=== PATIENT | male | born 1975 | race Caucasian/White ===

== ENCOUNTER 2018-07-11 06:46 | Day surgery (SDC) | payer OTHER ==
--- NOTE | 2018-07-09 09:06 | RAD REPORT ---
EXAM DESCRIPTION: RAD - Chest Pa And Lat (2 Views) - 07/09/2018 8:43 am CLINICAL HISTORY: preop Chest pain. COMPARISON: Chest Pa And Lat (2 Views) dated 02/19/2017 FINDINGS: The lungs are clear. The heart is normal in size. No displaced fractures. IMPRESSION: No acute or concerning finding suspected.
--- NOTE | 2018-07-09 10:08 | EKG ---
Test Date: 2018-07-09 Test Time: 08:30:02 Civil Structural Designer: MARISOL MEASUREMENT RESULTS: Intervals: Rate: 46 UT: 150 QRSD: 96 QT: 458 QTc: 400 [place]: P: 37 UT: 150 QRS: 2 T: -5 INTERPRETIVE STATEMENTS: Marked sinus bradycardia Abnormal ECG No previous ECG available for comparison Electronically Signed On 07-09-18 10:07:58 CEREAL SUPERVISOR by Cedric Choi
[2018-07-09 10:09] LABS: Absolute Lymphocytes (CBC) 2.9 K/uL (0.7-4.9); Absolute Monocytes 0.7 K/uL (0.1-1.3); Absolute Neutrophil 5.5 K/uL (1.8-8.0); Basophils % 0.6 % (0-1.3); Eosinophils % 1.6 % (0-4.4); Hematocrit 44.1 % (39.6-49.0); Lymphocytes % 30.9 % (15.3-44.8); MCH 30.4 pg (27.0-35.0); MCV 88.7 fL (80-100); Monocytes % 7.8 % (3.3-12.3); RBC Red Blood Cell Count 4.97 M/uL (4.33-5.43)
[2018-07-09 10:14] LABS: Albumin 3.9 g/dL (3.4-5.0); Bilirubin Direct 0.1 mg/dL (0-0.2); Bilirubin Total 0.5 mg/dL (0.2-1.0); Protein, Total 7.8 g/dL (6.4-8.2)
[2018-07-11] MEDS ORDERED: NA CHLORIDE 0.9% 1,000 ML ONE (07:55)
[2018-07-11] MEDS ORDERED: CEFOXITIN/SWI 1gm 1 GM/10 ML SYR ONE (07:56)
[2018-07-11] MEDS ORDERED: PROPOFOL 200 MG/20 ML VIAL IV ONE (08:36)
[2018-07-11] MEDS ORDERED: FENTANYL CITR 100 MCG/2 ML ONE (08:36)
[2018-07-11] MEDS ORDERED: MIDAZOLAM HCL 2 MG/2 ML INJ ONE (08:37)
[2018-07-11] MEDS ORDERED: LIDOCAINE 2% MPF 5 ML VIAL ONE (08:37)
[2018-07-11] MEDS ORDERED: ROCURONIUM 50 MG/5 ML VIAL IV ONE (08:38)
[2018-07-11] MEDS ORDERED: ONDANSETRON 4 MG/2 ML VIAL ONE (08:38)
[2018-07-11] MEDS ORDERED: EPHEDRINE SULF 50 MG/10 ML SYR ONE (09:32)
[2018-07-11] MEDS ORDERED: NEOSTIGMINE 1 MG/ML -5 ML SYRINGE ONE (10:08)
[2018-07-11] MEDS ORDERED: GLYCOPYRROLATE 0.2 MG/ML SYR ONE ×3 (10:08)
[2018-07-11] MEDS ORDERED: HYDROCODONE/APAP 7.5/325 MG TAB ONE (11:35)
--- NOTE | 2018-07-11 21:59 | OP ---
Date of Procedure: 07/11/2018 Surgeon: Uday Olivares MD Customer Complaint Clerk: MANGO Romero. Preoperative Diagnosis: Symptomatic cholelithiasis. Postoperative Diagnosis: Symptomatic cholelithiasis. Procedure: Laparoscopic cholecystectomy. Estimated Blood Loss: Minimal. Specimen: Gallbladder. Findings: As above. Anesthesia: General. Complications: None. Disposition: The patient tolerated the procedure in stable condition and taken to recovery in good g eneral condition. Description Of Procedure: The patient was brought to the OR and placed in the supine position. Gene ral anesthesia was begun. The patient was prepped and draped in usual sterile fashion. Marcaine 0.5 % was infiltrated locally. A 15-blade was used to make a 1 cm supraumbilical midline incision. Subc utaneous tissue was divided. The fascia was identified and divided. A #1 Vicryl stay suture was nusrat darwin. Peritoneal cavity was entered with sharp and blunt dissection. A 12-mm trocar was placed into the peritoneal cavity under direct vision. Pneumoperitoneum was established. Then, three 5-mm troca rs were placed, 1 in the epigastrium just to the right of midline and 2 in the right subcostal region . Laparoscopy revealed chronic inflammation of the gallbladder. Fundus was retracted superiorly. I nfundibulum was identified and retracted inferolaterally. Cystic duct and cystic artery were clearly identified with blunt dissection. Clips were placed. Both structures were divided. Cautery was us ed to remove the gallbladder from the liver bed. Bleeding on the liver bed was controlled with caute ry. The gallbladder was retrieved through the umbilicus via an EndoCatch bag. Right upper quadrant was examined. No evidence of bleeding or bile leakage was appreciated. Subsequently, all trocars we re removed under direct vision. Stay sutures were tied to each other to reapproximate the fascial de fect. Subcutaneous wounds were irrigated. Bleeding was controlled cautery. A 3-0 chromic used to r eapproximate the subcutaneous tissue and close the skin. Sterile dressing was applied. The patient was awakened and taken to recovery in good general condition. Discharge Note: The patient will go to day surgery and home when stable. Disposition: Home. Condition: Stable. Discharge Instructions: Resume home meds and diet. Activity as tolerated. No heavy lifting. Remov e outer dressing in 2 days. Shower. Keep wound clean and dry. Keep Steri-Strips on at all times. Follow up in my office in 1 week. Call for appointment. Tylenol No. 3, 1 tablet p.o. q.4 p.r.n. cecil VILLANUEVA/DERRICK Voice ID: [id number] Report ID: [id number]
== END 2018-07-11 12:30 | disposition home or self-care (01) ==
LOC: OR 06:46
PROVIDERS: ATTEND Surgery
PROC: 0FT44ZZ Resection of Gallbladder, Percutaneous Endoscopic Approach (ICD-10-PCS; principal; 2018-07-11 08:00)
DX: K80.10 Calculus of gallbladder with chronic cholecystitis without obstruction (principal); I10 Essential (primary) hypertension; E11.9 Type 2 diabetes mellitus without complications; K21.9 Gastro-esophageal reflux disease without esophagitis
CPT/HCPCS: 36415; 71046; 80048; 80076; 82150; 82962; 83036; 85025; 88304; 93005; J2250; J2405; J2704; J2710; J3010; J7030

== ENCOUNTER 2018-08-17 11:25 | Emergency (ER) | payer OTHER ==
[2018-08-17] MEDS ORDERED: NA CHLORIDE 0.9% 0 ML ONE (13:39)
[2018-08-17] MEDS ORDERED: METOCLOPRAMIDE 10 MG/2mL INJ ONE (13:39)
--- NOTE | 2018-08-17 13:44 | EDPHYS ---
Physician Documentation [facility] Name: Oscar Taveras Age: 43 yrs Sex: Male : 1975 Arrival Date: 08/17/2018 Time: 11:27 Bed 23 Private MD: Jonatan Garza ED Physician Fracisco Marrero HPI: 08/17 13:29 This 43 yrs old Male presents to ER via Ambulatory with complaints of Nose ps1 Bleed. 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 Takes Excedrin for migraines and ps1 recently took two pills which contain a large amount of aspirin. He had blood and clots that he spit out. He thinks he was bleeding from both naris. . Historical: - Allergies: 11:39 PENICILLINS; la1 - PMHx: 11:39 Diabetes - NIDDM; Migraines; Gout; Hypertension; la1 - Immunization history:: Adult Immunizations up to date. - Social history:: Smoking status: Patient/guardian denies using tobacco. - Ebola Screening: : No symptoms or risks identified at this time. ROS: 13:36 Constitutional: Negative for fever, chills, and weight loss, Eyes: Negative for injury, ps1 pain, redness, and discharge, Cardiovascular: Negative for chest pain, palpitations, and edema, Respiratory: Negative for shortness of breath, cough, wheezing, and pleuritic chest pain, Abdomen/GI: Negative for abdominal pain, nausea, vomiting, diarrhea, and constipation, Back: Negative for injury and pain, MS/Extremity: Negative for injury and deformity. 13:36 ENT: Positive for nose bleed, sinus congestion. 13:36 Neuro: Positive for headache. Exam: 13:36 Constitutional: This is a well developed, well nourished patient who is awake, alert, ps1 and in no acute distress. Head/Face: Normocephalic, atraumatic. Eyes: Pupils equal round and reactive to light, extra-ocular motions intact. Lids and lashes normal. Conjunctiva and sclera are non-icteric and not injected. ENT: Nares patent. No nasal discharge, no septal abnormalities noted. Tympanic membranes are normal and external auditory canals are clear. Oropharynx with no redness, swelling, or masses, exudates, or evidence of obstruction, uvula midline. Mucous membranes moist. Chest/axilla: Normal chest wall appearance and motion. Nontender with no deformity. No lesions are appreciated. Cardiovascular: Regular rate and rhythm. No gallops, murmurs, or rubs. Normal PMI, no JVD. No pulse deficits. Respiratory: Lungs have equal breath sounds bilaterally, clear to auscultation and percussion. No rales, rhonchi or wheezes noted. No increased work of breathing, no retractions or nasal flaring. Abdomen/GI: Soft, non-tender, with normal bowel sounds. No distension or tympany. No guarding or rebound. No evidence of tenderness throughout. Skin: Warm, dry with normal turgor. Normal color with no rashes, no lesions, and no evidence of cellulitis. Vital Signs: 11:40 BP 130 / 99; Pulse 56; Resp 18; Temp 97.8; Pulse Ox 98% on R/A; Weight 117.93 kg; la1 Height 6 ft. 0 in. (182.88 cm); 13:12 BP 137 / 79; Pulse 51; Resp 18; Pulse Ox 96% on R/A; tl3 11:40 Body Mass Index 35.26 (117.93 kg, 182.88 cm) la1 MDM: 13:43 Patient medically screened. ps1 13:44 Data reviewed: vital signs, nurses notes, and as a result, I will discharge patient. ED ps1 course: POC and reasons to return. Has nasal clamp, afrin. Cease ASA use. . Administered Medications: No medications were administered Disposition: 08/17/18 13:43 Discharged to Home. Impression: Epistaxis. - Condition is Stable. - Discharge Instructions: Nosebleed, Adult. - Medication Reconciliation Form, Thank You Letter, Antibiotic Education, Prescription Opioid Use form. - Follow up: Jonatan Garza MD; When: As needed; Reason: Recheck today's complaints, Continuance of care, Re-evaluation by your physician. Follow up: Emergency Department; When: As needed; Reason: Trouble breathing, Worsening of condition. 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 Takes Excedrin for migraines ps1 and recently took two pills which contain a large amount of aspirin. . ps1 14:09 13:43 08/17/2018 13:43 Discharged to Home. Impression: Epistaxis. Condition is Stable. tl3 Forms are Medication Reconciliation Form, Thank You Letter, Antibiotic Education, Prescription Opioid Use. Follow up: Jonatan Garza; When: As needed; Reason: Recheck today's complaints, Continuance of care, Re-evaluation by your physician. Follow up: Emergency Department; When: As needed; Reason: Trouble breathing, Worsening of condition. ps1
--- NOTE | 2018-08-17 13:44 | ER ---
Nurse's Notes [facility] Name: Oscar Taveras Age: 43 yrs Sex: Male : 1975 Arrival Date: 08/17/2018 Time: 11:27 Bed 23 Private MD: Jonatan Garza Diagnosis: Epistaxis Presentation: 08/17 11:39 Presenting complaint: Patient states: I have had 2 nose bleeds since yesterday but they la1 are each lasting >20 mins. No bleeding noted. Transition of care: patient was not received from another setting of care. Onset of symptoms was August 17, 2018. Risk Assessment: Do you want to hurt yourself or someone else? Patient reports no desire to harm self or others. Initial Sepsis Screen: Does the patient meet any 2 criteria? No. Patient's initial sepsis screen is negative. Does the patient have a suspected source of infection? No. Patient's initial sepsis screen is negative. Care prior to arrival: None. 11:39 Method Of Arrival: Ambulatory la1 11:39 Acuity: ROSENDA 4 la1 Historical: - Allergies: 11:39 PENICILLINS; la1 - PMHx: 11:39 Diabetes - NIDDM; Migraines; Gout; Hypertension; la1 - Immunization history:: Adult Immunizations up to date. - Social history:: Smoking status: Patient/guardian denies using tobacco. - Ebola Screening: : No symptoms or risks identified at this time. Screenin:12 Abuse screen: Denies threats or abuse. Nutritional screening: No deficits noted. tl3 Tuberculosis screening: No symptoms or risk factors identified. Fall Risk None identified. Assessment: 13:12 General: Appears in no apparent distress. comfortable, well groomed, well developed, tl3 well nourished, Behavior is calm, cooperative, appropriate for age. Pain: Denies pain. Neuro: Level of Consciousness is awake, alert, obeys commands, Oriented to person, place, time, situation, Appropriate for age. Cardiovascular: Patient's skin is warm and dry. Respiratory: Airway is patent Respiratory effort is even, unlabored, Respiratory pattern is regular, symmetrical. GI: No deficits noted. No signs and/or symptoms were reported involving the gastrointestinal system. : No deficits noted. No signs and/or symptoms were reported regarding the genitourinary system. EENT: Reports nasal discharge that is bloody has happened twice since yesterday. Derm: No signs and/or symptoms reported regarding the dermatologic system. Vital Signs: 11:40 BP 130 / 99; Pulse 56; Resp 18; Temp 97.8; Pulse Ox 98% on R/A; Weight 117.93 kg; la1 Height 6 ft. 0 in. (182.88 cm); 13:12 BP 137 / 79; Pulse 51; Resp 18; Pulse Ox 96% on R/A; tl3 11:40 Body Mass Index 35.26 (117.93 kg, 182.88 cm) la1 ED Course: 11:27 Patient arrived in ED. mr 11:28 Jonatan Garza MD is Private Physician. mr 11:40 Triage completed. la1 11:40 Arm band placed on right wrist. la1 13:04 Karon Preston RN is Primary Nurse. tl3 13:05 Fracisco Marrero MD is Attending Physician. ps1 13:12 Patient has correct armband on for positive identification. Bed in low position. Pulse tl3 ox on. NIBP on. 13:12 No provider procedures requiring assistance completed. Patient did not have IV access tl3 during this emergency room visit. 13:43 Jonatan Garza MD is Referral Physician. ps1 Administered Medications: No medications were administered Outcome: 13:43 Discharge ordered by . ps1 14:08 Discharged to home ambulatory. tl3 14:08 Condition: stable 14:08 Discharge instructions given to patient, family, Instructed on discharge instructions, follow up and referral plans. medication usage, Demonstrated understanding of instructions, follow-up care, medications. 14:09 Patient left the ED. tl3 Signatures: Kenyatta Briggs Lee, RN RN la1 Fracisco Marrero MD MD ps1 Karon Preston RN RN tl3
== END 2018-08-17 14:09 | disposition home or self-care (01) ==
LOC: ER 11:25
DX: R04.0 Epistaxis (principal); Z79.82 Long term (current) use of aspirin
CPT/HCPCS: 99283; J2765; J7030